=== PATIENT | female | born 1965 | race Caucasian/White ===

== ENCOUNTER 2019-03-12 14:55 | Emergency (ER) | payer BC | END 2019-03-12 18:15 | disposition left against medical advice (07) | LOC: ERS 14:55 | DX: Z53.21 Procedure and treatment not carried out due to patient leaving prior to being seen by health care provider (principal) ==

== ENCOUNTER 2020-12-07 16:04 | Observation (INO) | payer BC ==
[2020-12-07 18:39] LABS: #Basophils 0.1 thou/uL (0.0-0.2); #Eosinphils 0.1 thou/uL (0.0-0.7); #Lymphocytes 2.5 thou/uL (1.20-3.40); #Monocytes 0.9 thou/uL (0.11-0.59); #Neutrophils 9.6 thou/uL (1.40-6.50); %Basophils 0.5 % (0.0-1.0); %Eosinophils 0.4 % (0.0-10.0); %Lymphocytes 18.8 % (21.0-51.0); %Neutrophils 73.3 % (42.0-75.0); Hemoglobin 14.6 g/dL (12.0-16.0); Mean Corpuscular HGB CONC 34.6 g/dL (32.0-36.0); Mean Corpuscular Hemoglobin 31.1 pg (27.0-31.0); Mean Corpuscular Volume 89.8 fL (78.0-98.0); Mean Platelet Volume 7.1 fL (7.4-10.4); Platelet Count 287 thou/uL (130-400); RBC Distribution Width 11.3 % (11.5-14.5); Red Blood Cell (RBC) Count 4.69 mill/uL (4.20-5.40); White Blood Cell (WBC) Count 13.1 thou/uL (4.8-10.8)
[2020-12-07 18:58] LABS: ALT (SGPT) 11 U/L (8-55); AST (SGOT) 13 U/L (5-34); Alkaline Phosphatase 75 U/L (40-110); Anion Gap 9 mmol/L (10-20); BUN (Urea Nitrogen) 10 mg/dL (9.8-20.1); Bilirubin, Total 0.4 mg/dL (0.2-1.2); Calc. Creatinine Clearance 0 mL/min (70-130); Calcium 8.9 mg/dL (7.8-10.44); Carbon Dioxide 30 mmol/L (22-29); Chloride 100 mmol/L (98-107); Globulin 3.1 g/dL (2.4-3.5); Glucose 90 mg/dL (70-105); Potassium 3.4 mmol/L (3.5-5.1); Protein, Total 7.1 g/dL (6.0-8.3); Sodium 136 mmol/L (136-145)
[2020-12-07] MEDS ORDERED: Metoclopramide 10 MG/10 ML UDCUP ONE (19:10)
[2020-12-07] MEDS ORDERED: diphenhydrAMINE 50 MG/ML VIAL ONE (19:10)
[2020-12-07] MEDS ORDERED: Metoclopramide HCl 10 MG/2 ML VIAL ONE (19:10)
[2020-12-07 19:54] LABS: Bilirubin Negative (Negative); Blood, Urine Negative (Negative); Clarity Clear (Clear); Glucose, Urine (Dipstick) Normal (Negative); Ketone, Urine Negative (Negative); Leukocyte Negative Leu/uL (Negative); Nitrite Negative (Negative); Protein, Urine (Dipstick) Negative (Neg-Trace); Specific Gravity, Urine 1.004 (1.002-1.036); Urobilinogen Normal mg/dL (Less than 2)
[2020-12-07] MEDS ORDERED: Acetaminophen 325 MG TAB PO PRN (23:35)
[2020-12-07] MEDS ORDERED: Ondansetron PF 4 MG/2 ML Vial IVP PRN (23:35)
[2020-12-07 23:53] LABS: Hemoglobin A1c 5.3 % (4.0-6.0)
[2020-12-08] LABS: Cardiac Risk 3.8 (Less than 4.5)
[2020-12-08] MEDS ORDERED: Potassium Chloride 20 MEQ TAB PO SCH
[2020-12-08] MEDS ORDERED: hydrALAZINE 20 MG/ML VIAL SLOW IVP PRN (00:01)
[2020-12-08] MEDS ORDERED: Atorvastatin Calcium 40 MG TAB PO SCH ×2 (00:15→21:00)
[2020-12-08 01:29] VITALS: BMI 31.2
[2020-12-08 05:06] LABS: #Basophils 0.1 thou/uL (0.0-0.2); #Eosinphils 0.1 thou/uL (0.0-0.7); #Lymphocytes 2.3 thou/uL (1.20-3.40); #Monocytes 0.9 thou/uL (0.11-0.59); #Neutrophils 7.1 thou/uL (1.40-6.50); %Basophils 0.7 % (0.0-1.0); %Lymphocytes 22.1 % (21.0-51.0); %Monocytes 8.7 % (0.0-10.0); %Neutrophils 67.5 % (42.0-75.0); Hemoglobin 14.2 g/dL (12.0-16.0); Mean Corpuscular Hemoglobin 31.4 pg (27.0-31.0); Mean Corpuscular Volume 89.7 fL (78.0-98.0); Platelet Count 278 thou/uL (130-400); RBC Distribution Width 11.4 % (11.5-14.5); Red Blood Cell (RBC) Count 4.53 mill/uL (4.20-5.40); White Blood Cell (WBC) Count 10.6 thou/uL (4.8-10.8)
[2020-12-08 05:18] LABS: Magnesium 2.1 mg/dL (1.6-2.6)
[2020-12-08 05:20] LABS: ALT (SGPT) 12 U/L (8-55); AST (SGOT) 13 U/L (5-34); Albumin 3.6 g/dL (3.5-5.0); Alkaline Phosphatase 67 U/L (40-110); Anion Gap 6 mmol/L (10-20); BUN (Urea Nitrogen) 9 mg/dL (9.8-20.1); Bilirubin, Total 0.4 mg/dL (0.2-1.2); Calc. Creatinine Clearance 89 mL/min (70-130); Calcium 8.5 mg/dL (7.8-10.44); Carbon Dioxide 31 mmol/L (22-29); Chloride 103 mmol/L (98-107); Glucose 94 mg/dL (70-105); Potassium 3.4 mmol/L (3.5-5.1); Protein, Total 6.6 g/dL (6.0-8.3); Sodium 137 mmol/L (136-145)
[2020-12-08 05:37] LABS: Free T4 (Free Thyroxine) 0.74 ng/dL (0.70-1.48)
[2020-12-08] MEDS: Enoxaparin Sodium 40 MG/0.4 ML SYRINGE SC SCH (09:38)
[2020-12-08] MEDS: Lactated Ringer's 1,000 ML IV SCH ×2 (09:39→09:40)
[2020-12-08] MEDS ORDERED: Meclizine HCl 25 MG TAB PO SCH (10:30)
[2020-12-08] MEDS ORDERED: Amlodipine 10 MG TAB PO SCH (13:30)
[2020-12-08] MEDS ORDERED: Meclizine HCl 25 MG TAB PO PRN (17:49)
[2020-12-09 07:48] VITALS: BP 142/85; TEMP 97.8
[2020-12-09] MEDS: Enoxaparin Sodium 40 MG/0.4 ML SYRINGE SC SCH (08:58)
[2020-12-09] MEDS ORDERED: Amlodipine 10 MG TAB PO SCH (09:00)
== END 2020-12-09 12:10 | disposition home or self-care (01) ==
LOC: ERS 16:04 → 3SE 22:32
PROVIDERS: ADMIT Family Medicine; ATTEND Family Medicine
DX: H81.10 Benign paroxysmal vertigo, unspecified ear (principal); I16.1 Hypertensive emergency; I10 Essential (primary) hypertension; E78.00 Pure hypercholesterolemia, unspecified; E03.9 Hypothyroidism, unspecified; D72.829 Elevated white blood cell count, unspecified; E87.6 Hypokalemia; R51.9 Headache, unspecified
CPT/HCPCS: 36415; 70450; 70551; 71045; 80053; 80061; 81003; 83036; 83735; 84439; 84443; 84481; 84484; 85025; 93005; 96365; 96366; 96372; 96375; G0378; J1200; J1650; J2765; J7120

== ENCOUNTER 2021-06-01 20:31 | Observation (INO) | payer BC ==
[~2021-06-01 20:31] MED LIST: Iopamidol-370 76% 500 ML 1 ML ONE
[2021-06-01 21:08] LABS: #Basophils 0.1 thou/uL (0.0-0.2); #Eosinphils 0.1 thou/uL (0.0-0.7); #Lymphocytes 1.3 thou/uL (1.20-3.40); #Monocytes 0.3 thou/uL (0.11-0.59); #Neutrophils 7.4 thou/uL (1.40-6.50); %Basophils 0.9 % (0.0-1.0); %Eosinophils 1.1 % (0.0-10.0); %Lymphocytes 14.5 % (21.0-51.0); %Monocytes 3.6 % (0.0-10.0); Hemoglobin 15.6 g/dL (12.0-16.0); Mean Corpuscular HGB CONC 34.2 g/dL (32.0-36.0); Mean Corpuscular Hemoglobin 31.6 pg (27.0-31.0); Mean Corpuscular Volume 92.5 fL (78.0-98.0); Mean Platelet Volume 6.9 fL (7.4-10.4); Platelet Count 371 thou/uL (130-400); RBC Distribution Width 11.3 % (11.5-14.5); Red Blood Cell (RBC) Count 4.92 mill/uL (4.20-5.40); White Blood Cell (WBC) Count 9.3 thou/uL (4.8-10.8)
[2021-06-01 21:29] LABS: ALT (SGPT) 11 U/L (8-55); AST (SGOT) 16 U/L (5-34); Albumin 4.5 g/dL (3.5-5.0); Alkaline Phosphatase 98 U/L (40-110); Anion Gap 15 mmol/L (10-20); BUN (Urea Nitrogen) 17 mg/dL (9.8-20.1); Bilirubin, Total 0.4 mg/dL (0.2-1.2); Calc. Creatinine Clearance 0 mL/min (70-130); Calcium 9.5 mg/dL (7.8-10.44); Carbon Dioxide 24 mmol/L (22-29); Chloride 100 mmol/L (98-107); Globulin 3.9 g/dL (2.4-3.5); Glucose 107 mg/dL (70-105); Potassium 3.5 mmol/L (3.5-5.1); Protein, Total 8.4 g/dL (6.0-8.3); Sodium 135 mmol/L (136-145)
[2021-06-01 22:36] LABS: Amphetamine Not Detected (NotDetected); Barbiturates Screen Not Detected (NotDetected); Benzodiazepine Screen Not Detected (NotDetected); Cocaine Metabolite Screen Not Detected (NotDetected); Methadone Not Detected (NotDetected); Methamphetamine Not Detected (NotDetected); Opiate Screen Not Detected (NotDetected); Oxycodone Screen Not Detected (NotDetected); Phencyclidine (PCP) Not Detected (NotDetected); THC/Cannabinoid Screen Not Detected (NotDetected); Tricyclic Screen Not Detected (NotDetected)
[2021-06-01] MEDS ORDERED: Aspirin 325 MG TAB ONE (23:04)
[2021-06-02] MEDS ORDERED: hydrALAZINE 20 MG/ML VIAL SLOW IVP PRN ×2 (00:27→00:36)
[2021-06-02 00:40] LABS: Troponin I Less than 0.010 ng/mL (< 0.028)
[2021-06-02 01:02] VITALS: BMI 27.3
[2021-06-02] MEDS: Levothyroxine Sodium 112 MCG TAB PO SCH (05:45)
[2021-06-02 05:54] LABS: #Basophils 0.1 thou/uL (0.0-0.2); #Lymphocytes 1.4 thou/uL (1.20-3.40); #Monocytes 0.5 thou/uL (0.11-0.59); #Neutrophils 9.3 thou/uL (1.40-6.50); %Basophils 0.6 % (0.0-1.0); %Eosinophils 0.4 % (0.0-10.0); %Lymphocytes 12.1 % (21.0-51.0); %Monocytes 4.5 % (0.0-10.0); %Neutrophils 82.4 % (42.0-75.0); Hemoglobin 14.8 g/dL (12.0-16.0); Mean Corpuscular HGB CONC 34.7 g/dL (32.0-36.0); Mean Corpuscular Hemoglobin 32.1 pg (27.0-31.0); Mean Corpuscular Volume 92.6 fL (78.0-98.0); Mean Platelet Volume 6.9 fL (7.4-10.4); Platelet Count 354 thou/uL (130-400); RBC Distribution Width 11.3 % (11.5-14.5); Red Blood Cell (RBC) Count 4.62 mill/uL (4.20-5.40); White Blood Cell (WBC) Count 11.2 thou/uL (4.8-10.8)
[2021-06-02 06:03] LABS: Hemoglobin A1c 5.3 % (4.0-6.0); PTT 30.1 sec (22.9-36.1); Prothrombin Time 13.3 sec (12.0-14.7)
[2021-06-02 06:22] LABS: Anion Gap 11 mmol/L (10-20); BUN (Urea Nitrogen) 11 mg/dL (9.8-20.1); Calc. Creatinine Clearance 99 mL/min (70-130); Calcium 8.8 mg/dL (7.8-10.44); Carbon Dioxide 27 mmol/L (22-29); Cardiac Risk 3.6 (Less than 4.5); Chloride 103 mmol/L (98-107); Cholesterol 256 mg/dl (< 200 Desired); Glucose 102 mg/dL (70-105); HDL Cholesterol 72 mg/dL (>60 Neg Risk); LDL Cholesterol, Calculated 172 mg/dL; Potassium 3.8 mmol/L (3.5-5.1); Sodium 137 mmol/L (136-145); Triglycerides 58 mg/dL (Less than 150)
[2021-06-02 06:24] LABS: Bacteria/HPF None Seen HPF (None Seen); Bilirubin Negative (Negative); Blood, Urine Trace (Negative); Clarity Clear (Clear); Glucose, Urine (Dipstick) Normal (Negative); Ketone, Urine Negative (Negative); Leukocyte Negative Leu/uL (Negative); Nitrite Negative (Negative); Protein, Urine (Dipstick) 10 mg/dL (Neg-Trace); RBC/HPF 0-3 HPF (0-3); Specific Gravity, Urine 1.019 (1.002-1.036); Squamous Epithelial 0-3 HPF (0-3); Urobilinogen Normal mg/dL (Less than 2); WBC/HPF 0-3 HPF (0-3)
[2021-06-02] MEDS ORDERED: Amlodipine 10 MG TAB PO SCH ×2 (09:00→09:15)
[2021-06-02] MEDS: Ascorbic Acid 500 mg Chewable Tablet PO SCH (09:11)
[2021-06-02] MEDS: Multivitamin W/ Minerals 1 TAB PO SCH (09:11)
[2021-06-02] MEDS ORDERED: Aspirin 81 mg Enteric Coated Tablet PO SCH (09:15)
[2021-06-02] MEDS: Acetaminophen 500 MG TAB PO PRN ×2 (09:18→21:52)
[2021-06-02] MEDS: Meclizine HCl 12.5 MG TAB PO PRN ×2 (09:19→21:53)
[2021-06-02] MEDS ORDERED: Clopidogrel Bisulfate 300 MG TAB PO SCH (10:45)
[2021-06-02 11:10] LABS: SARS-CoV-2 PCR by NAA Not Detected (NotDetected)
[2021-06-02] MEDS ORDERED: Clopidogrel Bisulfate 75 MG TAB PO SCH (11:45)
[2021-06-02] MEDS ORDERED: Atorvastatin Calcium 40 MG TAB PO SCH (21:00)
[2021-06-03 04:55] LABS: #Eosinphils 0.1 thou/uL (0.0-0.7); #Lymphocytes 1.8 thou/uL (1.20-3.40); #Monocytes 0.4 thou/uL (0.11-0.59); #Neutrophils 8.1 thou/uL (1.40-6.50); %Basophils 0.4 % (0.0-1.0); %Eosinophils 0.5 % (0.0-10.0); %Lymphocytes 17.1 % (21.0-51.0); %Monocytes 4.2 % (0.0-10.0); %Neutrophils 77.8 % (42.0-75.0); Hemoglobin 14.9 g/dL (12.0-16.0); Mean Corpuscular HGB CONC 33.6 g/dL (32.0-36.0); Mean Corpuscular Hemoglobin 30.9 pg (27.0-31.0); Mean Platelet Volume 6.5 fL (7.4-10.4); Platelet Count 410 thou/uL (130-400); RBC Distribution Width 11.3 % (11.5-14.5); Red Blood Cell (RBC) Count 4.84 mill/uL (4.20-5.40); White Blood Cell (WBC) Count 10.4 thou/uL (4.8-10.8)
[2021-06-03 05:45] LABS: Chloride 102 mmol/L (98-107); Potassium 3.7 mmol/L (3.5-5.1); Sodium 137 mmol/L (136-145)
[2021-06-03 05:46] LABS: Calcium 9.1 mg/dL (7.8-10.44); Glucose 122 mg/dL (70-105)
[2021-06-03 05:48] LABS: Anion Gap 14 mmol/L (10-20); Carbon Dioxide 25 mmol/L (22-29)
[2021-06-03 05:50] LABS: BUN (Urea Nitrogen) 14 mg/dL (9.8-20.1); Calc. Creatinine Clearance 85 mL/min (70-130)
[2021-06-03] MEDS: Levothyroxine Sodium 112 MCG TAB PO SCH (06:34)
[2021-06-03] MEDS ORDERED: Aspirin 81 mg Enteric Coated Tablet PO SCH (09:00)
[2021-06-03] MEDS ORDERED: Clopidogrel Bisulfate 75 MG TAB PO SCH (09:00)
[2021-06-03] MEDS ORDERED: Amlodipine 10 MG TAB PO SCH (09:00)
[2021-06-03] MEDS: Ascorbic Acid 500 mg Chewable Tablet PO SCH (09:24)
[2021-06-03] MEDS: Multivitamin W/ Minerals 1 TAB PO SCH (09:24)
[2021-06-03] MEDS: Acetaminophen 500 MG TAB PO PRN (10:20)
[2021-06-03] MEDS: Meclizine HCl 12.5 MG TAB PO PRN (10:20)
[2021-06-03 11:46] VITALS: TEMP 98
[2021-06-03 12:18] VITALS: BP 170/108
[2021-06-05 22:36] LABS: Alpha 1 0.3 g/dL (0.0-0.4); Alpha 2 0.8 g/dL (0.4-1.0); Beta 1.4 g/dL (0.7-1.3); Gamma 1.7 g/dL (0.4-1.8); Globulin, Total 4.2 g/dL (2.2-3.9); M-Spike Not Observed g/dL (Not Observed)
[2021-06-06 13:39] LABS: Albumin-Ur 69.9 % (.); Alpha 1 - Ur 4.5 % (.); Alpha 2 - Ur 6.8 % (.); Beta-Ur 9.6 % (.); Gamma-Ur 9.2 % (.); M-Spike,% Not Observed % (Not Observed); Protein, Urine 11.5 mg/dL (Not Estab.)
== END 2021-06-03 14:05 | disposition home or self-care (01) ==
LOC: ERS 20:31 → INTOOBSV 23:05 → NEURO 23:05
PROVIDERS: ADMIT Family Medicine; ATTEND Family Medicine
DX: E03.9 Hypothyroidism, unspecified (principal); G93.41 Metabolic encephalopathy; I16.0 Hypertensive urgency; I10 Essential (primary) hypertension; H81.10 Benign paroxysmal vertigo, unspecified ear; R51.9 Headache, unspecified; E04.2 Nontoxic multinodular goiter; I08.1 Rheumatic disorders of both mitral and tricuspid valves; Z91.14 Patient's other noncompliance with medication regimen; Z79.899 Other long term (current) drug therapy; Z20.822 Contact with and (suspected) exposure to COVID-19
CPT/HCPCS: 36415; 36416; 70450; 70496; 70498; 70551; 71045; 76536; 80048; 80053; 80061; 80306; 81001; 83036; 83735; 84165; 84166; 84443; 84484; 85025; 85610; 85730; 87086; 93005; 93306; G0378; Q9967; U0003; U0005

== ENCOUNTER 2021-09-20 11:13 | Emergency (ER) | payer BC ==
[2021-09-20 12:02] LABS: #Basophils 0.1 thou/uL (0.0-0.2); #Eosinphils 0.2 thou/uL (0.0-0.7); #Lymphocytes 1.1 thou/uL (1.20-3.40); #Monocytes 0.4 thou/uL (0.11-0.59); #Neutrophils 7.2 thou/uL (1.40-6.50); %Basophils 1.1 % (0.0-1.0); %Eosinophils 2.2 % (0.0-10.0); %Lymphocytes 12.4 % (21.0-51.0); %Monocytes 3.9 % (0.0-10.0); %Neutrophils 80.4 % (42.0-75.0); Hemoglobin 14.5 g/dL (12.0-16.0); Mean Corpuscular HGB CONC 34.2 g/dL (32.0-36.0); Mean Corpuscular Hemoglobin 31.1 pg (27.0-31.0); Mean Platelet Volume 6.1 fL (7.4-10.4); Platelet Count 435 thou/uL (130-400); RBC Distribution Width 10.9 % (11.5-14.5); Red Blood Cell (RBC) Count 4.66 mill/uL (4.20-5.40)
[2021-09-20 12:24] LABS: ALT (SGPT) 15 U/L (8-55); AST (SGOT) 20 U/L (5-34); Albumin 4.2 g/dL (3.5-5.0); Alkaline Phosphatase 109 U/L (40-110); Anion Gap 10 mmol/L (10-20); BUN (Urea Nitrogen) 15 mg/dL (9.8-20.1); Bilirubin, Total 0.3 mg/dL (0.2-1.2); Calc. Creatinine Clearance 0 mL/min (70-130); Calcium 9.4 mg/dL (7.8-10.44); Carbon Dioxide 29 mmol/L (22-29); Chloride 100 mmol/L (98-107); Globulin 3.8 g/dL (2.4-3.5); Glucose 99 mg/dL (70-105); Potassium 3.7 mmol/L (3.5-5.1); Sodium 135 mmol/L (136-145)
[2021-09-20] MEDS ORDERED: diphenhydrAMINE 50 MG/ML VIAL ONE (12:38)
[2021-09-20] MEDS ORDERED: Ketorolac Tromethamine 30 MG/ML VIAL ONE (12:38)
[2021-09-20] MEDS ORDERED: Acetaminophen 500 MG TAB ONE (12:38)
[2021-09-20] MEDS ORDERED: Metoclopramide HCl 10 MG/2 ML VIAL ONE (12:38)
[2021-09-20] MEDS ORDERED: cloNIDine 0.1 MG TAB ONE (13:12)
== END 2021-09-20 14:23 | disposition home or self-care (01) ==
LOC: ERS 11:13
DX: I10 Essential (primary) hypertension (principal); R29.700 NIHSS score 0; E03.9 Hypothyroidism, unspecified; Z79.82 Long term (current) use of aspirin; Z79.899 Other long term (current) drug therapy
CPT/HCPCS: 36415; 71045; 80053; 84484; 85025; 93005; 96374; 96375; J1200; J1885; J2765

== ENCOUNTER 2021-10-04 08:03 | Observation (INO) | payer BC ==
[2021-10-04] MEDS ORDERED: Ondansetron ODT 4 MG TAB ONE ×2 (08:42→16:34)
[2021-10-04 09:20] LABS: #Basophils 0.1 thou/uL (0.0-0.2); #Eosinphils 0.4 thou/uL (0.0-0.7); #Lymphocytes 1.5 thou/uL (1.20-3.40); #Monocytes 0.5 thou/uL (0.11-0.59); #Neutrophils 12.9 thou/uL (1.40-6.50); %Basophils 0.5 % (0.0-1.0); %Eosinophils 2.8 % (0.0-10.0); %Lymphocytes 9.5 % (21.0-51.0); %Monocytes 3.3 % (0.0-10.0); Hemoglobin 13.8 g/dL (12.0-16.0); Mean Corpuscular HGB CONC 32.7 g/dL (32.0-36.0); Mean Corpuscular Hemoglobin 29.9 pg (27.0-31.0); Mean Corpuscular Volume 91.6 fL (78.0-98.0); Platelet Count 343 thou/uL (130-400); Red Blood Cell (RBC) Count 4.62 mill/uL (4.20-5.40); White Blood Cell (WBC) Count 15.3 thou/uL (4.8-10.8)
[2021-10-04 09:36] LABS: ALT (SGPT) 12 U/L (8-55); AST (SGOT) 16 U/L (5-34); Albumin 3.9 g/dL (3.5-5.0); Alkaline Phosphatase 102 U/L (40-110); Anion Gap 14 mmol/L (10-20); BUN (Urea Nitrogen) 15 mg/dL (9.8-20.1); Bilirubin, Total 0.3 mg/dL (0.2-1.2); Calc. Creatinine Clearance 0 mL/min (70-130); Calcium 9.2 mg/dL (7.8-10.44); Carbon Dioxide 26 mmol/L (22-29); Chloride 99 mmol/L (98-107); Estimated GFR 80; Globulin 3.5 g/dL (2.4-3.5); Glucose 130 mg/dL (70-105); Potassium 3.9 mmol/L (3.5-5.1); Protein, Total 7.4 g/dL (6.0-8.3); Sodium 135 mmol/L (136-145)
[2021-10-04] MEDS ORDERED: Acetaminophen 500 MG TAB ONE (11:36)
[2021-10-04] MEDS ORDERED: Acetaminophen 325 MG TAB PO PRN (12:06)
[2021-10-04] MEDS ORDERED: Ondansetron PF 4 MG/2 ML Vial IVP PRN (12:06)
[2021-10-04 14:33] LABS: Bilirubin Negative (Negative); Blood, Urine Negative (Negative); Clarity Clear (Clear); Glucose, Urine (Dipstick) Normal (Negative); Ketone, Urine Negative (Negative); Leukocyte Negative Leu/uL (Negative); Nitrite Negative (Negative); Protein, Urine (Dipstick) Negative (Neg-Trace); Specific Gravity, Urine 1.016 (1.002-1.036); Urobilinogen Normal mg/dL (Less than 2); pH, Urine 7.5 (5.0-9.0)
[2021-10-04] MEDS ORDERED: Ibuprofen 600 MG TAB PO PRN (15:03)
[2021-10-04] MEDS ORDERED: Lactated Ringer's 1,000 ML IV SCH (15:15)
[2021-10-04 15:18] LABS: SARS-CoV-2 NAA Rapid Test Not Detected (NotDetected)
[2021-10-04] MEDS: Ondansetron ODT 4 MG TAB PO PRN (16:36)
[2021-10-04 18:09] VITALS: BMI 30.4
[2021-10-04] MEDS: hydrALAZINE 20 MG/ML VIAL SLOW IVP PRN (18:10)
[2021-10-04] MEDS ORDERED: Atorvastatin Calcium 40 MG TAB PO SCH (21:00)
[2021-10-04] MEDS ORDERED: traZODone HCl 50 MG TAB PO SCH (21:00)
[2021-10-04] MEDS ORDERED: hydrALAZINE 25 MG TAB PO SCH (21:00)
[2021-10-05] MEDS: hydrALAZINE 20 MG/ML VIAL SLOW IVP PRN (00:03)
[2021-10-05] MEDS ORDERED: Levothyroxine 175 MCG TAB PO SCH (06:00)
[2021-10-05] MEDS: Promethazine 25 MG TAB PO PRN ×2 (06:03)
[2021-10-05] MEDS ORDERED: Aspirin 81 mg Enteric Coated Tablet PO SCH (09:00)
[2021-10-05] MEDS ORDERED: Aripiprazole 10 MG TAB PO SCH (09:00)
[2021-10-05] MEDS ORDERED: Amlodipine 10 MG TAB PO SCH (09:00)
[2021-10-05] MEDS ORDERED: Clopidogrel Bisulfate 75 MG TAB PO SCH (09:00)
[2021-10-05] MEDS ORDERED: NIFEdipine XL 60 MG TAB PO SCH (09:00)
[2021-10-05] MEDS ORDERED: Enoxaparin Sodium 40 MG/0.4 ML SYRINGE SC SCH (09:00)
[2021-10-05] MEDS ORDERED: Lisinopril 20 MG TAB PO SCH (09:00)
[2021-10-05 15:45] VITALS: BP 114/56; TEMP 97.2
[2021-10-05] MEDS: Ondansetron ODT 4 MG TAB PO PRN (15:53)
[2021-10-11] MEDS ORDERED: cloNIDine 0.1mg/24 Hour PATCH TD SCH (09:00)
== END 2021-10-05 17:50 | disposition home or self-care (01) ==
LOC: ERS 08:03 → ERHOLD 12:06 → 2NO 18:27
PROVIDERS: ADMIT Family Medicine; ATTEND Family Medicine
DX: R00.1 Bradycardia, unspecified (principal); R55 Syncope and collapse; I16.0 Hypertensive urgency; I10 Essential (primary) hypertension; E03.9 Hypothyroidism, unspecified; I25.10 Atherosclerotic heart disease of native coronary artery without angina pectoris; E78.5 Hyperlipidemia, unspecified; H81.10 Benign paroxysmal vertigo, unspecified ear; Z79.02 Long term (current) use of antithrombotics/antiplatelets; Z79.82 Long term (current) use of aspirin; Z79.890 Hormone replacement therapy; Z79.899 Other long term (current) drug therapy; Z20.822 Contact with and (suspected) exposure to COVID-19
CPT/HCPCS: 36415; 71045; 80053; 81003; 83690; 84484; 85025; 93005; 96372; 96374; 96375; G0378; J0360; J1650; J2405; J7120; Q0162; Q0169; U0002

== ENCOUNTER 2021-10-31 14:37 | Outpatient (CLI) | payer BC | END 2021-10-31 14:38 | disposition home or self-care (01) | LOC: BICULT 14:37 | PROVIDERS: ATTEND Nurse Practitioner Family | DX: I10 Essential (primary) hypertension (principal); E03.9 Hypothyroidism, unspecified; E04.1 Nontoxic single thyroid nodule | CPT/HCPCS: 76536; 76770; 93975 ==

== ENCOUNTER 2022-04-26 06:14 | Emergency (ER) | payer OTHER, BC ==
[2022-04-26] MEDS ORDERED: traMADol HCl 50 MG TAB ONE (07:44)
== END 2022-04-26 08:50 | disposition home or self-care (01) ==
LOC: ERS 06:14
DX: S50.11XA Contusion of right forearm, initial encounter (principal); E03.9 Hypothyroidism, unspecified; E78.5 Hyperlipidemia, unspecified; I10 Essential (primary) hypertension; W01.0XXA Fall on same level from slipping, tripping and stumbling without subsequent striking against object, initial encounter

== ENCOUNTER 2023-08-12 21:14 | Observation (INO) | payer BC, OTHER ==
[2023-08-12 22:24] LABS: #Basophils 0.08 10x3/uL (0.0-0.2); %Basophils 1.2 % (0.0-1.0); %Eosinophils 2.5 % (0.0-10.0); %Lymphocytes 24.9 % (21.0-51.0); %Monocytes 6.5 % (0.0-10.0); %Neutrophils 64.6 % (42.0-75.0); Hematocrit 41.9 % (36.0-47.0); Hemoglobin 14.1 g/dL (12.0-16.0); Mean Corpuscular HGB CONC 33.7 g/dL (32.0-36.0); Mean Platelet Volume 9.3 fL (7.4-10.4); Platelet Count 298 10x3/uL (130-400); RBC Distribution Width 12.5 % (11.5-14.5); Red Blood Cell (RBC) Count 4.87 mill/uL (4.20-5.40)
[2023-08-12] MEDS ORDERED: Aspirin Chewable 81 MG TAB ONE (22:40)
[2023-08-12 22:46] LABS: PTT 29.5 sec (22.9-36.1); Prothrombin Time 13.5 sec (12.0-14.7)
[2023-08-12 22:52] LABS: Magnesium 2.3 mg/dL (1.6-2.6)
[2023-08-12 22:58] LABS: Troponin I Less than 0.010 ng/mL (< 0.028)
[2023-08-12 23:03] LABS: Globulin 4.4 g/dL (2.4-3.5)
[2023-08-12 23:07] LABS: ALT (SGPT) 17 U/L (8-55); AST (SGOT) 24 U/L (5-34); Albumin 3.9 g/dL (3.5-5.0); Alkaline Phosphatase 93 U/L (40-110); Anion Gap 14 mmol/L (10-20); BUN (Urea Nitrogen) 16 mg/dL (9.8-20.1); Bilirubin, Total 0.4 mg/dL (0.2-1.2); Calc. Creatinine Clearance 0 mL/min (70-130); Calcium 9.6 mg/dL (7.8-10.44); Carbon Dioxide 27 mmol/L (22-29); Chloride 103 mmol/L (98-107); Estimated GFR 75; Glucose 94 mg/dL (70-105); Potassium 3.6 mmol/L (3.5-5.1); Protein, Total 8.3 g/dL (6.0-8.3); Sodium 140 mmol/L (136-145)
[2023-08-12] MEDS ORDERED: hydrALAZINE 25 MG TAB ONE (23:12)
[2023-08-13] MEDS ORDERED: hydrALAZINE 25 MG TAB ONE (03:51)
[2023-08-13] MEDS ORDERED: Enoxaparin 40 MG (0.4 mL) SYRINGE ONE (09:41)
[2023-08-13 09:47] LABS: #Basophils 0.06 10x3/uL (0.0-0.2); %Basophils 0.7 % (0.0-1.0); %Eosinophils 1.1 % (0.0-10.0); %Monocytes 4.2 % (0.0-10.0); %Neutrophils 77.6 % (42.0-75.0); Hematocrit 42.9 % (36.0-47.0); Hemoglobin 14.7 g/dL (12.0-16.0); Mean Corpuscular HGB CONC 34.3 g/dL (32.0-36.0); Mean Corpuscular Hemoglobin 29.3 pg (27.0-31.0); Mean Corpuscular Volume 85.6 fL (78.0-98.0); Mean Platelet Volume 9.6 fL (7.4-10.4); Platelet Count 331 10x3/uL (130-400); RBC Distribution Width 12.6 % (11.5-14.5); Red Blood Cell (RBC) Count 5.01 mill/uL (4.20-5.40)
[2023-08-13] MEDS ORDERED: Sertraline 100 MG TAB PO SCH (10:00)
[2023-08-13 10:25] LABS: Hemoglobin A1c 5.4 % (4.0-6.0)
[2023-08-13] MEDS: NIFEdipine XL 60 MG ER.TAB PO SCH (10:43)
[2023-08-13] MEDS: Levothyroxine 175 MCG TAB PO SCH (10:44)
[2023-08-13] MEDS: Enoxaparin 40 MG (0.4 mL) SYRINGE SC SCH (10:44)
[2023-08-13 11:01] LABS: Cardiac Risk 4.1 (Less than 4.5); Troponin I Less than 0.010 ng/mL (< 0.028)
[2023-08-13 11:02] LABS: ALT (SGPT) 16 U/L (8-55); AST (SGOT) 22 U/L (5-34)
[2023-08-13 11:03] LABS: Alkaline Phosphatase 85 U/L (40-110); BUN (Urea Nitrogen) 13 mg/dL (9.8-20.1); Bilirubin, Total 0.4 mg/dL (0.2-1.2); Calc. Creatinine Clearance 87 mL/min (70-130); Carbon Dioxide 19 mmol/L (22-29); Estimated GFR 92
[2023-08-13 11:04] LABS: Albumin 3.7 g/dL (3.5-5.0); Calcium 9.4 mg/dL (7.6-10.4); Chloride 107 mmol/L (98-107); Globulin 4.1 g/dL (2.4-3.5); Glucose 94 mg/dL (70-105); Protein, Total 7.8 g/dL (6.0-8.3)
[2023-08-13 11:05] LABS: Anion Gap 16 mmol/L (10-20); Potassium 3.5 mmol/L (3.5-5.1); Sodium 138 mmol/L (136-145)
[2023-08-13] MEDS ORDERED: hydrALAZINE 20 MG/ML VIAL ONE (11:54)
[2023-08-13] MEDS ORDERED: Losartan 25 MG TAB ONE (11:55)
[2023-08-13] MEDS: hydrALAZINE 20 MG/ML VIAL SLOW IVP PRN (11:59)
[2023-08-13] MEDS: Losartan 25 MG TAB PO SCH (11:59)
[2023-08-13] MEDS ORDERED: hydrALAZINE 20 MG/ML VIAL SLOW IVP PRN (12:56)
[2023-08-13] MEDS: Sodium Chloride 0.9% 500 ML IV SCH ×2 (13:58→14:00)
[2023-08-13 17:09] VITALS: BMI 28.8
[2023-08-13] MEDS: Atorvastatin Calcium 40 MG TAB PO SCH (21:40)
[2023-08-14] MEDS: Acetaminophen 325 MG TAB PO PRN (02:32)
[2023-08-14 05:35] LABS: Anion Gap 13 mmol/L (10-20); BUN (Urea Nitrogen) 11 mg/dL (9.8-20.1); Calc. Creatinine Clearance 83 mL/min (70-130); Calcium 8.9 mg/dL (7.8-10.44); Carbon Dioxide 20 mmol/L (22-29); Chloride 107 mmol/L (98-107); Estimated GFR 92; Glucose 105 mg/dL (70-105); Potassium 3.6 mmol/L (3.5-5.1); Sodium 136 mmol/L (136-145)
[2023-08-14] MEDS ORDERED: Levothyroxine 175 MCG TAB PO SCH (06:00)
[2023-08-14] MEDS: Levothyroxine Sodium 100 MCG TAB PO SCH (06:10)
[2023-08-14] MEDS ORDERED: Regadenoson 0.4 MG/5 ML SYRINGE ONE (10:26)
[2023-08-14] MEDS: Sertraline 100 MG TAB PO SCH (11:27)
[2023-08-14] MEDS: Losartan 25 MG TAB PO SCH (15:12)
[2023-08-14] MEDS: NIFEdipine XL 60 MG ER.TAB PO SCH (15:13)
[2023-08-14 15:16] VITALS: TEMP 97.9
[2023-08-14 16:24] VITALS: BP 165/78
== END 2023-08-14 18:54 | disposition home or self-care (01) ==
LOC: ERS 21:14 → ERHOLD 23:58 → 2SW 08-13 16:50
PROVIDERS: ADMIT Family Medicine; ATTEND Family Medicine
DX: R07.89 Other chest pain (principal); F41.9 Anxiety disorder, unspecified; I10 Essential (primary) hypertension; E03.9 Hypothyroidism, unspecified; R42 Dizziness and giddiness; Z79.890 Hormone replacement therapy; Z79.02 Long term (current) use of antithrombotics/antiplatelets; Z79.82 Long term (current) use of aspirin; Z79.899 Other long term (current) drug therapy
CPT/HCPCS: 36415; 36416; 71045; 78452; 80048; 80053; 80061; 83036; 83735; 83880; 84439; 84443; 84484; 85025; 85379; 85610; 85730; 93005; 93017; 94760; 96372; 96374; A9502; G0378; J0360; J1650; J2785; J7030; J7050